=== PATIENT | female | born 1985 | race Caucasian/White ===

== ENCOUNTER 2019-02-25 23:14 | Inpatient (IN) | payer OTHER ==
[~2019-02-25] VITALS: Ht 170.2 cm; Wt 84.1 kg
[2019-02-25] MEDS ORDERED: LIDOCAINE 1%, 20ML ONE (23:17)
[2019-02-25] MEDS ORDERED: OXYTOCIN 30U/ 0.9% NaCL 500ML 500 ML IV ONE (23:17)
[2019-02-25] MEDS ORDERED: NEWBORN KIT ONE (23:17)
[2019-02-25] MEDS ORDERED: MISOPROSTOL 200 MCG TABLET ONE (23:18)
[2019-02-25] MEDS ORDERED: OXYTOCIN 30U/ 0.9% NaCL 500ML 500 ML ONE (23:18)
[2019-02-25] MEDS: LACTATED RINGERS 1,000 ML IV SCH ×2 (23:24→23:42)
[2019-02-25] MEDS ORDERED: SODIUM CITRATE/CITRIC ACID 15 ML UDC PO PRN (23:30)
[2019-02-25] MEDS ORDERED: METOCLOPRAMIDE 5 MG/ML, 2ML IVPush PRN (23:30)
[2019-02-25] MEDS ORDERED: FENTANYL PF 100 MCG/2ML IVPush PRN (23:30)
[2019-02-25] MEDS ORDERED: CALCIUM CARBONATE 500 MG TAB.CHEW PO PRN (23:30)
[2019-02-25] MEDS ORDERED: TERBUTALINE 1 MG/ML, 1ML IVPush PRN (23:30)
[2019-02-25] MEDS ORDERED: ONDANSETRON 2MG/ML, 2ML IVPush PRN (23:30)
[2019-02-25] MEDS ORDERED: FENTANYL PF 100 MCG/2ML IV PRN (23:30)
[2019-02-25 23:34] LABS: BASOPHILS # (AUTO) 0.04 x10^3/uL (0-0.1); BASOPHILS % (AUTO) 0 % (0-1); EOSINOPHILS # (AUTO) 0.24 x10^3/uL (0-0.4); EOSINOPHILS % (AUTO) 1 % (1-7); LYMPHOCYTES # (AUTO) 1.67 x10^3/uL (1-3.4); LYMPHOCYTES % (AUTO) 10 % (22-44); MD NO; MEAN CORPUSCULAR HEMOGLOBIN 29.4 pg (27.0-34.8); MEAN CORPUSCULAR VOLUME 86.5 fL (80-100); MEAN PLATELET VOLUME 8.3 fL (7.4-10.4); MONOCYTES # (AUTO) 0.61 x10^3/uL (0.2-0.8); MONOCYTES % (AUTO) 4 % (2-9); NEUTROPHILS % (AUTO) 85 % (42-75); PLATELET COUNT 237 x10^3/uL (130-400); RED BLOOD COUNT 5.26 x10^6/uL (3.82-5.3)
[2019-02-26] MEDS: OXYTOCIN 30U/ 0.9% NaCL 500ML 500 ML IV SCH ×4 (00:13→10:13)
[2019-02-26] MEDS ORDERED: OXYcodone/APAP 5/325MG TABLET ONE (00:20)
[2019-02-26] MEDS ORDERED: IBUPROFEN 600 MG TABLET ONE (00:20)
[2019-02-26] MEDS: IBUPROFEN 600 MG TABLET PO PRN ×4 (00:21→21:51)
[2019-02-26] MEDS: OXYcodone/APAP 5/325MG TABLET PO PRN ×4 (00:22→19:31)
[2019-02-26] MEDS ORDERED: ACETAMINOPHEN 325 MG TABLET PO PRN (00:30)
[2019-02-26] MEDS ORDERED: MISOPROSTOL 200 MCG TABLET PR PRN (00:30)
[2019-02-26] MEDS ORDERED: OXYTOCIN 30U/ 0.9% NaCL 500ML 500 ML ONE (00:32)
[2019-02-26] MEDS ORDERED: PREN1TAB60 PO (01:19)
[2019-02-26 02:00] VITALS: BP 130/67
[2019-02-26 04:15] VITALS: BP 121/65
[2019-02-26] MEDS: PRENATAL VIT/IRON/FA 1 EACH TABLET PO SCH (07:33)
[2019-02-26] MEDS: DOCUSATE 100 MG CAPSULE PO PRN (07:34)
[2019-02-26 07:55] VITALS: BP 116/69
[2019-02-26 09:00] LABS: MEAN CORPUSCULAR HEMOGLOBIN 29.8 pg (27.0-34.8); MEAN CORPUSCULAR HGB CONC 34.2 g/dL (32.4-35.8); MEAN CORPUSCULAR VOLUME 87.1 fL (80-100); MEAN PLATELET VOLUME 8.6 fL (7.4-10.4); PLATELET COUNT 224 x10^3/uL (130-400); RED CELL DISTRIBUTION WIDTH 15.9 % (9.6-15.2)
[2019-02-26] MEDS ORDERED: PRENATAL VIT/IRON/FA 1 EACH TABLET PO SCH (09:00)
[2019-02-26 09:46] LABS: MD YES
[2019-02-26 09:48] LABS: <PLATELET ESTIMATE> ADEQUATE; <PLT MORPHOLOGY> NORMAL PLT MORPH; ANISOCYTOSIS 1+; BAND#(MANUAL) 1.15 x10^3/uL; BANDS%(MANUAL) 5 % (0-7); LYMPH#(MANUAL) 1.83 x10^3/uL (1-3.4); LYMPHS% (MANUAL) 8 % (22-44); MONOS#(MANUAL) 1.83 x10^3/uL (0.3-2.7); MONOS% (MANUAL) 8 % (2-9); POLYCHROMASIA 1+; SEG#(MANUAL) 18.09 x10^3/uL (1.8-6.8); SEGS% (MANUAL) 79 % (42-75)
[2019-02-26 12:30] VITALS: BP 135/78
[2019-02-26 17:33] VITALS: BP 122/75
[2019-02-26 21:00] VITALS: BP 120/75
[2019-02-27 07:00] VITALS: BP 125/79
[2019-02-27] MEDS: IBUPROFEN 600 MG TABLET PO PRN (08:02)
[2019-02-27] MEDS: OXYcodone/APAP 5/325MG TABLET PO PRN (08:02)
[2019-02-27] MEDS: DOCUSATE 100 MG CAPSULE PO PRN (08:02)
[2019-02-27] MEDS: PRENATAL VIT/IRON/FA 1 EACH TABLET PO SCH (08:02)
[2019-02-27] MEDS ORDERED: IBUP-1222 PO (12:16)
== END 2019-02-27 14:32 | disposition home or self-care (01) | DRG 807 ==
LOC: LDIP 23:14 → 2NW 02-26 01:58
PROVIDERS: ADMIT Obstetrics & Gynecology; ATTEND Obstetrics & Gynecology
PROC: 10E0XZZ Delivery of Products of Conception, External Approach (ICD-10-PCS; principal; 2019-02-26)
PROC: 0KQM0ZZ Repair Perineum Muscle, Open Approach (ICD-10-PCS; 2019-02-26)
DX: O48.0 Post-term pregnancy (principal); Z37.0 Single live birth; O34.219 Maternal care for unspecified type scar from previous cesarean delivery; Z3A.41 41 weeks gestation of pregnancy; O70.1 Second degree perineal laceration during delivery; O71.82 Other specified trauma to perineum and vulva; O77.0 Labor and delivery complicated by meconium in amniotic fluid
CPT/HCPCS: 36415; 85025; 86900; 87806; G0378; G0475; J2590; J7120